=== PATIENT | male | born 1960 ===

== ENCOUNTER → 2023-06-18 12:58 | Outpatient (BNVA) | payer MEDICAID, SELFPAY | PROVIDERS: PCP Family Medicine; Visit Provider Nurse Practitioner Family ==

== ENCOUNTER 2023-11-20 14:57 | Outpatient (AMB) | payer MEDICAID, SELFPAY ==
--- NOTE | 2023-11-20 15:36 | MHC.OFFVIS ---
Intake Visit Reasons: Elevated PSA/urinary hesitancy Intake Note: New Patient is present for Elevated PSA and Urinary Hesitancy First visit with a Urologist Currently on both Tamsulosin, sildenafil Patient states last week patient's PSA was 6.11 Patient states that he feels like he can't empty bladder completely He states he has to strain very hard. Patient has been on Tamsulosin for about a year and it is no longer working for patient He complaints that he feels like his pelvic area is swollen and this is something that is new PVR:34 Allergies cetirizine [From [facility]] Adverse Reaction (Verified 11/20/23 15:42) did not tolerate well nortriptyline Adverse Reaction (Verified 11/20/23 15:42) did not tolerate well HPI Comments Details: Robbi is a pleasant male. He is a patient of Dr. Dobbs. He is seen for the following urologic conditions - elevated PSA - progressive lower urinary urinary tract symptom - erectile dysfunction - low libido Discussed progressive BPH with high PSA Options include prostate biopsy versus trial of finasteride for BPH Is happy with trial of finasteride. Three-month follow-up lab work Understands that persistent elevated PSA through finasteride may represent underlying dysregulated prostate tissue Lower urinary tract symptoms Progressive symptoms with weakness of stream Feeling of incomplete emptying Minimal nocturia PCP had started tamsulosin PSA 03/22 5.1 PFSH Medical History Benign essential hypertension Keratoconus Chronic back pain Mixed hyperlipidemia Review of Systems Const Denies chills and Denies fever(s) Card Reports no additional complaints and Denies syncope Resp Denies cough GI Denies abdominal pain and Denies heartburn Reports as per HPI and Denies change in libido Neuro Denies syncope Psych Denies change in libido Endo Denies change in libido Physical Exam Const General: cooperative, healthy appearing, comfortable and no acute distress Orientation/consciousness: patient oriented x3 HEENT Face and sinus: Yes normal facial exam Mouth: moist mucous membranes Neck Neck: Yes normal visual inspection, Yes full ROM and Yes trachea midline Chest Chest palpation & inspection: normal inspection of the chest Resp Effort & Inspection: normal respiratory effort, able to speak in complete sentences and no respiratory distress GI Inspection: Yes normal to inspection Back/Spine/Pelvis Cervical Spine: normal cervical lordosis Thoracic/Lumbar Spine: thoracic and lumbar spine normal to inspection Skin General skin exam: no rashes or lesions noted Neuro General: patient oriented x3, gait normal, tone normal and moves all extremities Extrem General: Yes normal to inspection and Yes capillary refill normal Office Procedures Post Void Residual Post Residual Void Post Void Residual (PVR): 34 [id number] Void Residual by ultrasound Assessment & Plan Assessment & Plan (1) Low libido: Code(s): R68.82 - Decreased libido Category: Medical (2) Erectile dysfunction: Code(s): N52.9 - Male erectile dysfunction, unspecified Category: Medical (3) Weak urinary stream: Code(s): R39.12 - Poor urinary stream Category: Medical (4) BPH w urinary obs/LUTS: Code(s): N40.1 - Benign prostatic hyperplasia with lower urinary tract symptoms; N13.8 - Other obstructive and reflux uropathy Category: Medical (5) Elevated PSA: Code(s): R97.20 - Elevated prostate specific antigen [PSA] Category: Medical Plan 3 month follow-up labs Orders: Orders AMB Post Void Residual by ultrasound 11/20/23 R39.11 - Hesitancy of micturition Prostate Specific Antigen 3 Months R97.20 - Elevated prostate specific antigen [PSA] Testosterone, Free/Total 3 Months R97.20 - Elevated prostate specific antigen [PSA] Medications: New finasteride 5 mg PO DAILY 90 tabs 1RF 90 days R97.20 - Elevated prostate specific antigen [PSA], N40.1 - Benign prostatic hyperplasia with lower urinary tract symptoms, N13.8 - Other obstructive and reflux uropathy, R33.9 - Retention of urine, unspecified Patient Instructions: Imaging studies, laboratory and physical exam results were discussed and reviewed in detail. No major barriers to patient understanding were identified. An opportunity to ask questions regarding the treatment plan was provided. All questions were answered. The patient expressed understanding and agreement with the above treatment plan. The patient is aware they should contact our office by phone for worsening of their current condition or the appearance of new urologic symptoms. Compliance is encouraged with any medications and followup testing that is ordered. It is a privilege to participate in the urologic care of your patient. If you have any questions or concerns regarding treatment for the above conditions, or other urologic issues, please do not hesitate to contact me. The office telephone contact is [phone]. This note is constructed using voice recognition software. While every effort has been made to ensure accuracy sweet potato disintegrator errors may have been included. Yours sincerely, Dr Vini Tao MD, [facility] - Urology Providers of Expert, Compassionate Care for the Genitourinary System
== END 2023-11-20 16:22 | disposition home or self-care (01) ==
PROVIDERS: PCP Family Medicine; Visit Provider Urology
DX: N40.1 Benign prostatic hyperplasia with lower urinary tract symptoms (principal); R39.12 Poor urinary stream; R68.82 Decreased libido; N52.9 Male erectile dysfunction, unspecified; N13.8 Other obstructive and reflux uropathy; R97.20 Elevated prostate specific antigen [PSA]
CPT/HCPCS: 99204

== ENCOUNTER → 2023-11-20 14:57 | Outpatient (BNVA) | payer MEDICAID, SELFPAY | PROVIDERS: PCP Family Medicine; Visit Provider Urology | DX: N40.1 Benign prostatic hyperplasia with lower urinary tract symptoms (principal); N13.8 Other obstructive and reflux uropathy; R97.20 Elevated prostate specific antigen [PSA]; R39.11 Hesitancy of micturition; R39.12 Poor urinary stream; N52.9 Male erectile dysfunction, unspecified; R68.82 Decreased libido; Z79.899 Other long term (current) drug therapy | CPT/HCPCS: 51798; 99202 ==

== ENCOUNTER 2024-02-18 11:49 | Outpatient (AMB) | payer OTHER, SELFPAY ==
--- NOTE | 2024-02-18 11:56 | A.OFFVIS_ITS ---
Intake Visit Reasons: PSA/3M Intake Note: Patient is Present for Telephone Follow Up PSA Urology Med: Finasteride, Tamsulosin Antibiotic Allergy:None Blood Thinner:None Allergies cetirizine [From [facility]] Adverse Reaction (Verified 11/20/23 15:42) did not tolerate well nortriptyline Adverse Reaction (Verified 11/20/23 15:42) did not tolerate well Medication List - Last Reconciled 02/18/24 by Vini Tao MD atorvastatin 10 mg PO DAILY finasteride 5 mg PO DAILY 90 days hydrocodone-acetaminophen 5-325 mg 1 tab PO BID PRN lisinopril-hydrochlorothiazide 20-12.5 mg 1 tab PO DAILY mirtazapine 7.5 mg PO BEDTIME tamsulosin 0.4 mg PO DAILY HPI Comments Details: Robbi is a pleasant male. He is a patient of Dr. Dobbs. He is seen for the following urologic conditions - elevated PSA - progressive lower urinary urinary tract symptom - erectile dysfunction - low libido Telemedicine Evaluation 15 min Consultation [facility] Video Follow-up from trial of finasteride Prior discussion progressive BPH with high PSA Options include prostate biopsy versus trial of finasteride for BPH Three-month lab work shows PSA 4.6 which is starting to decline Understands that persistent elevated PSA through finasteride may represent underlying dysregulated prostate tissue Repeat lab work in 3 months Lower urinary tract symptoms Progressive symptoms with weakness of stream Feeling of incomplete emptying Minimal nocturia PCP had started tamsulosin PSA 03/22 5.1, 02/21 4.6 PFSH Medical History Benign essential hypertension Keratoconus Chronic back pain Mixed hyperlipidemia Review of Systems Const All systems reviewed & are unremarkable except as noted in HPI and below Reports no additional complaints Resp Reports no additional complaints GI Reports no additional complaints Reports as per HPI Musc Reports no additional complaints Physical Exam Telemedicine evaluation Appropriate responses Regular breathing rate and rhythm HEENT Head: Yes normal to inspection Ears: hearing grossly normal bilaterally Eyes General: appearance normal, both eyes and all related structures Neck Neck: Yes normal visual inspection Chest Chest palpation & inspection: normal inspection of the chest Resp Effort & Inspection: normal respiratory effort and able to speak in complete sentences Telehealth Telehealth Location of provider rendering services: practice address Location of patient: address on file Patient Identification confirmed using: Name, : Yes Telehealth method: voice only Patient verbally consented to treatment: Yes Patient verbally consented to billing insurance company: Yes Patient informed of any privacy concerns related to visit: Yes Assessment & Plan Assessment & Plan (1) BPH w urinary obs/LUTS: Code(s): N40.1 - Benign prostatic hyperplasia with lower urinary tract symptoms; N13.8 - Other obstructive and reflux uropathy Category: Medical (2) Elevated PSA: Code(s): R97.20 - Elevated prostate specific antigen [PSA] Category: Medical Plan Three-month follow-up lab Orders: Orders Prostate Specific Antigen 3 Months R97.20 - Elevated prostate specific antigen [PSA] Patient Instructions: Imaging studies, laboratory and physical exam results were discussed and reviewed in detail. No major barriers to patient understanding were identified. An opportunity to ask questions regarding the treatment plan was provided. All questions were answered. The patient expressed understanding and agreement with the above treatment plan. The patient is aware they should contact our office by phone for worsening of their current condition or the appearance of new urologic symptoms. Compliance is encouraged with any medications and followup testing that is ordered. It is a privilege to participate in the urologic care of your patient. If you have any questions or concerns regarding treatment for the above conditions, or other urologic issues, please do not hesitate to contact me. The office telephone contact is [phone]. This note is constructed using voice recognition software. While every effort has been made to ensure accuracy gas treater errors may have been included. Yours sincerely, Dr Vini Tao MD, [facility] - Urology Providers of Expert, Compassionate Care for the Genitourinary System Coding Level of Care Code Tele Est Pt Level 3 (16734) Diagnoses BPH w urinary obs/LUTS N40.1; N13.8 Elevated PSA R97.20
== END 2024-02-18 12:56 | disposition home or self-care (01) ==
LOC: HO.HUSH 11:49
PROVIDERS: PCP Family Medicine; Visit Provider Urology
DX: N40.1 Benign prostatic hyperplasia with lower urinary tract symptoms (principal); N13.8 Other obstructive and reflux uropathy; R97.20 Elevated prostate specific antigen [PSA]
CPT/HCPCS: 99213

== ENCOUNTER → 2024-02-18 11:49 | Outpatient (BNVA) | payer OTHER, SELFPAY | PROVIDERS: PCP Family Medicine; Visit Provider Urology ==